=== PATIENT | male | born 1945 | race Caucasian/White ===

== ENCOUNTER 2019-10-05 08:06 | Day surgery (SDC) | payer OTHER ==
[~2019-10-05] VITALS: Ht 185.4 cm; Wt 86.2 kg
[2019-10-05 08:35] VITALS: BP 140/83
[2019-10-05 13:42] VITALS: BP 127/76
== END 2019-10-05 12:35 | disposition home or self-care (01) ==
LOC: GI 08:06 → OR 09:30 → GI 09:30 → OR 11:00 → GI 12:35
DX: Z12.11 Encounter for screening for malignant neoplasm of colon (principal); D12.2 Benign neoplasm of ascending colon; K63.89 Other specified diseases of intestine; K57.30 Diverticulosis of large intestine without perforation or abscess without bleeding; K64.8 Other hemorrhoids; M19.90 Unspecified osteoarthritis, unspecified site; E78.00 Pure hypercholesterolemia, unspecified; Z79.82 Long term (current) use of aspirin; Z79.899 Other long term (current) drug therapy; Z86.010 Personal history of colon polyps; Z98.890 Other specified postprocedural states; Z86.73 Personal history of transient ischemic attack (TIA), and cerebral infarction without residual deficits
CPT/HCPCS: 45378; 88305; J1200; J1610; J2250; J2310; J3010; J3490